=== PATIENT | male | born 1985 | race Two or more races ===

== ENCOUNTER 2016-08-29 23:35 | Emergency (ER) | payer OTHER ==
[~2016-08-29] VITALS: Ht 170.2 cm; Wt 95.3 kg
[~2016-08-29 23:35] MED LIST: IBUPROFEN600 MG ORAL; TRAMADOL HCL50 MG ORAL; XYLOCAINE35.44 GM EXT
[2016-08-30] MEDS ORDERED: LORazepam 1mg tab ORAL ONE (00:15)
[2016-08-30] MEDS ORDERED: KLONOPIN0.5 MG ORAL (01:14)
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
[2016-08-30 01:23] VITALS: BP 123/86
== END 2016-08-30 01:27 | disposition home or self-care (01) ==
LOC: EMR 23:59
DX: F14.10 Cocaine abuse, uncomplicated (principal); F41.9 Anxiety disorder, unspecified; M25.561 Pain in right knee; G89.29 Other chronic pain
CPT/HCPCS: 80300; 99283

== ENCOUNTER 2016-11-27 23:28 | Emergency (ER) | payer MEDICAID, OTHER ==
[~2016-11-27] VITALS: Ht 172.7 cm; Wt 95.3 kg
[~2016-11-27 23:28] MED LIST changes: +KLONOPIN0.5 MG ORAL
[2016-11-27] MEDS ORDERED: NKM (23:36)
[2016-11-28 00:10] LABS: BASOPHILS % (AUTO) 0.7 % (0.0-2.0); EOSINOPHILS % (AUTO) 0.5 % (0.0-3.0); LYMPHOCYTES % (AUTO) 18.3 % (20.0-45.0); MEAN CORPUSCULAR HEMOGLOBIN 27.1 PG (27.0-31.0); MEAN CORPUSCULAR HGB CONC 32.8 G/DL (32.0-36.0); MEAN CORPUSCULAR VOLUME 83 FL (80-99); MEAN PLATELET VOLUME 7.6 FL (6.5-10.1); MONOCYTES % (AUTO) 7.1 % (1.0-10.0); NEUTROPHILS % (AUTO) 73.4 % (45.0-75.0); PLATELET COUNT 282 K/UL (150-450); RED BLOOD COUNT 5.23 M/UL (4.70-6.10); RED CELL DISTRIBUTION WIDTH 15.4 % (11.6-14.8); WHITE BLOOD COUNT 9.3 K/UL (4.8-10.8)
[2016-11-28 00:21] LABS: ACETAMINOPHEN < 10 ug/mL (10-30); ALANINE AMINOTRANSFERASE 29 U/L (3-41); ALBUMIN/GLOBULIN RATIO 0.9 (1.0-2.7); ALCOHOL < 10 mg/dL; ANION GAP 15 (5-15); ASPARTATE AMINO TRANSFERASE 25 U/L (5-40); CALCIUM 9.3 mg/dL (8.6-10.2); CARBON DIOXIDE 27 mEQ/L (20-30); CHLORIDE 100 mEQ/L (98-107); CREATININE 2.3 mg/dL (0.7-1.2); GLOMERULAR FILTRATION RATE 33.8 mL/min (>60); HEMOLYSIS 3; POTASSIUM 4.2 mEQ/L (3.4-4.9); SODIUM 142 mEQ/L (135-145); TOTAL PROTEIN 8.3 g/dL (6.6-8.7)
[2016-11-28 02:26] VITALS: BP 92/48
[2016-11-28 02:27] VITALS: BP 98/66
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
== END 2016-11-28 02:28 | disposition home or self-care (01) ==
LOC: EDBD 23:28 → EMR 23:50
DX: E86.0 Dehydration (principal); F19.10 Other psychoactive substance abuse, uncomplicated
CPT/HCPCS: 36415; 80053; 80329; 85025; 96360

== ENCOUNTER 2017-08-13 18:37 | Emergency (ER) | payer MEDICAID ==
[~2017-08-13] VITALS: Ht 172.7 cm; Wt 83.0 kg
[~2017-08-13 18:37] MED LIST changes: +NKM
[2017-08-13 19:05] VITALS: BP 114/45
--- NOTE | 2017-08-13 19:13 | Emergency Room Report ---
History of Present Illness General Chief Complaint: Animal Bite Source: Patient (Ilya Helms) Present Illness HPI 32-year-old male patient presents to ER complaining of animal bite. patient reports that he was bit by a dog about one hour ago. Patient reports that he does not know the pharmacist in charge owner of the dog. Patient reports pain at site of bite on forearm. Patient reports bleeding from site of bite. Patient denies loss of range of motion or loss of sensation. Patient denies fever, chest pain, shortness of breath. Patient reports he is up-to-date on tetanus vaccinations, last tetanus vaccination 2 years ago. patient does not have any information about the dog pharmacist in charge owner, does not have the owners name and contact information. (Ilya Helms) Allergies: Coded Allergies: No Known Allergies (Unverified , 11/27/16) Patient History Past Medical History: see triage record Immunizations: UTD Reviewed Nursing Documentation: PMH: Agreed; PSxH: Agreed (Ilya Helms) Nursing Documentation-PMH Past Medical History: No Stated History (Ilya Helms) Review of Systems All Other Systems: negative except mentioned in HPI (Ilya Helms) Physical Exam Vital Signs Date Time Temp Pulse Resp B/P (MAP) Pulse Ox O2 Delivery O2 Flow Rate FiO2 08/13/17 18:58 98.4 84 20 114/45 94 Room Air 98.4 Sp02 EP Interpretation: reviewed, normal General Appearance: well appearing, no apparent distress, alert, GCS 15, non- toxic Head: normocephalic, atraumatic Respiratory: lungs clear, normal breath sounds, no rhonchi, no respiratory distress, no accessory muscle use, no wheezing, speaking full sentences Cardiovascular #1: regular rate, rhythm, no edema Cardiovascular #2: 2+ radial (R), 2+ radial (L) Musculoskeletal: back normal, digits/nails normal, gait/station normal, normal range of motion, non-tender Psychiatric: mood/affect normal Skin: other - right forearm, ulnar side: circular bite tammie, blood present, no active bleeding, two deep puncture wounds distally within bite [place], ecchymosis (Ilya Helms) Medical Decision Making PA Attestation Dr. Javier is my supervising Physician whom patient management has been discussed with. (Ilya Helms) Diagnostic Impression: Primary Impression: Bite by animal ER Course Pt presents to ED c/o dog bite. DDX considered but are not limited to animal bite, abrasion, cellulitis, contusion, fracture, retained FB. VITALS Patient is afebrile ordered x-ray and pain medication. Will order x-ray to rule out retained foreign body such as tooth. ED COURSE: x-ray right forearm negative for acute disease, retained foreign body per the preliminary reading. Superficial wounds on right forearm, no active bleeding or draining. Wound does not require suturing. Wound clean and placed in sterile dressing. Does not require Tdap at this time, patient is up to date. Patient instructed to follow up with PCP for wound check in 2-3 days and complete full course of antibiotics. Completed [employer] organization animal bite reporting form with available information. Patient reports pain symptoms have improved. DISCHARGE: Rx provided for Augmentin. At this time pt is stable for d/c to home. she resting comfortably in no acute distress, nontoxic-appearing, able to answer questions without difficulty. Will provide with patient care instructions and any necessary prescriptions. Patient to take medication as instructed. Care plan and follow-up instructions provided. Patient questions asked and answered. Patient reports understanding and agreement to treatment plan. ER precautions given. Patient instructed to return to ER immediately for any new or worsening of symptoms. - Please note that this Emergency Department Report was dictated using [employer] technology software, occasionally this can lead to erroneous entry secondary to interpretation by the dictation equipment. (Ilya Helms) Other X-Ray Diagnostic Results Other X-Ray Diagnostic Results : X-Ray ordered: right forearm # of Views/Limited Vs Complete: 2 View Indication: Pain EP Interpretation: Yes PA Xray: Interpretation reviewed, by supervising MD, and agrees with findings. Interpretation: no dislocation, no soft tissue swelling, no fractures, other - no FB Impression: No acute disease PA Scribe Text Devin Helms PA-C (Ilya Helms.Pameal) Other X-Ray Diagnostic Results : Electronically Signed by: Scribe documentation reviewed by and is accurate, Leopoldo Javier MD. (Leopoldo Jvaier M.D.) Last Vital Signs Date Time Temp Pulse Resp B/P (MAP) Pulse Ox O2 Delivery O2 Flow Rate FiO2 08/13/17 18:58 98.4 84 20 114/45 94 Room Air 98.4 (Ilya Helms) Disposition: HOME, SELF-CARE Condition: Stable Scripts Amoxicillin/Potassium Clav 875-125* (AUGMENTIN 875-125 TABLET*) 1 Each Tablet 1 TAB ORAL TWICE A DAY for 7 Days, #14 TAB Prov: Ilya Helms 08/13/17 Patient Instructions: Animal Bite Additional Instructions: Followup with primary care provider in 3 -5 days for wound check. Return to ER if unable to get appointment or new or worsening of symptoms. Keep wound clean and dry. Take medications as directed. Patient questions asked and answered. ER precautions given, patient instructed to return to ER immediately for any new or worsening of symptoms. Ilya Helms Aug 13, 2017 19:13 Leopoldo Javier M.D. August 15, 2017 16:43
[2017-08-13] MEDS ORDERED: Ketorolac 30mg Inj IM ONE (19:15)
[2017-08-13] MEDS ORDERED: Norco 5mg/325mg tab ORAL ONE (19:15)
[2017-08-13] MEDS ORDERED: Bacitracin Oint UD TOPIC ONE (20:00)
[2017-08-13] MEDS ORDERED: AUGMENTIN 875-1 EAC1 ORAL (20:07)
[2017-08-13 20:41] VITALS: BP 90/57
[2017-08-13 20:47] VITALS: BP 90/57
--- NOTE | 2017-08-14 10:25 | Diagnostic Imaging Report ---
Indication: Pain Forearm pain Findings: 2 views of the left forearm were obtained. There is soft tissue air along the ulnar aspect of the wrist and forearm. This is presumably due to laceration or injury. There is no radiopaque foreign body. No malalignment or acute fracture identified. IMPRESSION: Soft tissue air presumably due to injury. Correlate clinically
== END 2017-08-13 20:47 | disposition home or self-care (01) ==
LOC: EMR 19:41
DX: S51.831A Puncture wound without foreign body of right forearm, initial encounter (principal); W54.0XXA Bitten by dog, initial encounter; Y92.9 Unspecified place or not applicable
CPT/HCPCS: 73090; 96372; 99283; J1885

== ENCOUNTER 2018-04-29 07:57 | Emergency (ER) | payer MEDICAID ==
[~2018-04-29] VITALS: Ht 172.7 cm; Wt 79.4 kg
[~2018-04-29 07:57] MED LIST changes: +AUGMENTIN 875-1 EAC1 ORAL
[2018-04-29 08:08] VITALS: BP 127/84
[2018-04-29] MEDS ORDERED: IBUPROFEN600 MG ORAL (08:33)
[2018-04-29 08:39] VITALS: BP 115/78
--- NOTE | 2018-04-29 09:07 | Emergency Room Report ---
History of Present Illness General Chief Complaint: Chest Pain Source: Patient Present Illness HPI 32-year-old male presents ED for evaluation. Patient complaining of cough and chest wall pain 3 days. Started after he smoked marijuana. Noticed intense bout of coughing which resolved with chest pain that developed shortly after. States he still had the pain. Right-sided, dull, 6 out of 10, nonradiating. Worse with coughing. Coughing is dry. Denies fevers or chills. Denies shortness of breath. Denies any other drug use. No other aggravating relieving factors. Denies any other associated symptoms Allergies: Coded Allergies: No Known Allergies (Unverified , 04/29/18) Patient History Past Medical History: none Past Surgical History: none Pertinent Family History: none Social History: Denies: smoking, alcohol use, drug use Immunizations: UTD Reviewed Nursing Documentation: PMH: Agreed; PSxH: Agreed Nursing Documentation-PMH Past Medical History: No History, Except For Review of Systems All Other Systems: negative except mentioned in HPI Physical Exam Vital Signs Date Time Temp Pulse Resp B/P (MAP) Pulse Ox O2 Delivery O2 Flow Rate FiO2 04/29/18 08:00 98.2 78 16 125/78 97 Room Air 04/29/18 08:08 98 Sp02 EP Interpretation: reviewed, normal General Appearance: no apparent distress, alert, GCS 15, non-toxic Head: normocephalic, atraumatic Eyes: bilateral eye normal inspection, bilateral eye PERRL ENT: hearing grossly normal, normal pharynx, no angioedema, normal voice Neck: full range of motion, supple/symm/no masses Respiratory: lungs clear, normal breath sounds, speaking full sentences, other - reproducibel R sided chest wall pain Cardiovascular #1: regular rate, rhythm, no edema Cardiovascular #2: 2+ carotid (R), 2+ carotid (L), 2+ radial (R), 2+ radial (L) , 2+ dorsalis pedis (R), 2+ dorsalis pedis (L) Gastrointestinal: normal bowel sounds, non tender, soft, non-distended, no guarding, no rebound Rectal: deferred Genitourinary: normal inspection, no CVA tenderness Musculoskeletal: back normal, gait/station normal, normal range of motion, non- tender Neurologic: alert, oriented x3, responsive, motor strength/tone normal, sensory intact, speech normal Psychiatric: judgement/insight normal, memory normal, mood/affect normal, no suicidal/homicidal ideation Reflexes: 3+ bicep (R), 3+ bicep (L), 3+ tricep (R), 3+ tricep (L), 3+ knee (R) , 3+ knee (L) Skin: normal color, no rash, warm/dry, well hydrated Lymphatic: no adenopathy Medical Decision Making Diagnostic Impression: Primary Impression: Chest wall pain Additional Impression: Substance abuse ER Course Hospital Course 32-year-old male presents ED complaining of reproducible chest wall pain after coughing. h/o marijuana use Differential diagnoses include: Rib fracture, TX/unstable angina, contusion, muscle strain Clinical course Patient placed on stretcher. After initial history, physical exam reveals male in no acute distress. There is right-sided reproducible rib pain. Lungs clear. No bruising or crepitus. EKGnormal sinus rhythm no acute ischemic changes interpreted by me Vital stable. No cardiac history. Appears comfortable, not in distress clinical findings consistent with muscle strain/costochondritis. Reassurance given. No additional workup indicated at this time. Cautioned on the use of smoking. We'll provide referrals I. I feel this is a highly complex case requiring extensive working including EKG/Rhythm strip, Xray/CT/US, Blood/urine lab work, repeat exams while in ED, and administration of strong opiates/narcotics for pain control, admission to hospital or close patient follow up. Diagnosis - chest wall pain, substance abuse Stable and discharged to home with prescription for Motrin. avoid smoking. Instructed to followup with PMD. Return to ED if symptoms recur or worsen EKG Diagnostic Results Rate: normal Rhythm: NSR ST Segments: no acute changes ASA given to the pt in ED: No Rhythm Strip Diag. Results EP Interpretation: yes Rhythm: NSR, no PVC's, no ectopy Last Vital Signs Date Time Temp Pulse Resp B/P (MAP) Pulse Ox O2 Delivery O2 Flow Rate FiO2 04/29/18 08:39 98.0 77 16 115/78 100 Room Air 04/29/18 08:08 98 Status: improved Disposition: HOME, SELF-CARE Condition: Stable Scripts Ibuprofen* (MOTRIN*) 600 Mg Tablet 600 MG ORAL Q8H PRN for For Pain, #30 TAB 0 Refills Prov: Ranyd Moore MD 04/29/18 Referrals: NON PHYSICIAN (PCP) [facility] Patient Instructions: Chest Wall Pain, [id number] Randy Moore MD Apr 29, 2018 09:07
--- NOTE | 2018-04-30 17:21 | Cardiology Report ---
APPROVED REPORT EKG Measurement Heart [id number] Normal sinus rhythm Normal ECG
== END 2018-04-29 08:40 | disposition home or self-care (01) ==
LOC: EMR 08:25
DX: R07.89 Other chest pain (principal); F12.10 Cannabis abuse, uncomplicated
CPT/HCPCS: 93005; 99283

== ENCOUNTER 2018-05-25 13:50 | Emergency (ER) | payer MEDICAID ==
[~2018-05-25] VITALS: Ht 170.2 cm; Wt 83.9 kg
[2018-05-25] MEDS ORDERED: NKM (13:56)
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
[2018-05-25] MEDS ORDERED: Norco 5mg/325mg tab ORAL ONE (14:15)
[2018-05-25 14:20] VITALS: BP 104/81
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
[2018-05-25] MEDS ORDERED: IBUPROFEN600 MG ORAL (15:18)
[2018-05-25 15:29] VITALS: BP 104/81
--- NOTE | 2018-05-25 15:30 | NUR ---
ED Nurse Note: Pt cleared DC by KY Tam. Pt is A/Ox4, VSS, DC instruction and prescriptions given, pt verbalized understanding. ID wristband removed. All belongings given to pt. Pt ambulated out of ER with steady gait.
== END 2018-05-25 15:30 | disposition home or self-care (01) ==
LOC: EMR 14:21
DX: S80.01XA Contusion of right knee, initial encounter (principal); V09.9XXA Pedestrian injured in unspecified transport accident, initial encounter; Y92.410 Unspecified street and highway as the place of occurrence of the external cause
CPT/HCPCS: 99283

== ENCOUNTER 2019-09-19 05:49 | Day surgery (SDC) | payer OTHER ==
[~2019-09-19] VITALS: Ht 175.3 cm; Wt 79.4 kg
[2019-09-19] VITALS (12 sets, daily range): BP systolic 105–124; BP diastolic 58–81
[~2019-09-19 05:49] MED LIST changes: +ALA-CORT28.4 GM TP; +ALDARA0.25 GM TOPIC
[2019-09-19] MEDS ORDERED: oxyCONTIN 20mg tab ORAL ONE (06:00)
[2019-09-19] MEDS ORDERED: celeBREX 200mg Cap **SURGERY PATIENTS ONLY ORAL ONE (06:00)
[2019-09-19] MEDS ORDERED: ceFAZolin 1gm IVPB IVPB ONE ×2 (06:00)
[2019-09-19] MEDS ORDERED: Midazolam 2mg/2ml Inj ONE (07:11)
[2019-09-19] MEDS ORDERED: fentaNYL 100 mcg/2 mL IV ONE (07:11)
[2019-09-19] MEDS ORDERED: Kenalog-40 1ml Vial ONE (07:14)
[2019-09-19] MEDS ORDERED: Duramorph PF 5mg/10ml amp ONE (07:14)
[2019-09-19] MEDS ORDERED: Ketorolac 30mg Inj ONE (07:14)
[2019-09-19] MEDS ORDERED: Lidocaine 1% 10mg/ml/Epi 0.005mg/ml 30ml vial INJ ONE (07:15)
[2019-09-19] MEDS ORDERED: Bupivacaine 0.25% Inj 30ml INJ ONE (07:15)
[2019-09-19] MEDS ORDERED: LR 1000ml ONE (07:30)
--- NOTE | 2019-09-19 07:44 | Anethesia Preoperative Eval ---
Anesthesia Pre-op PMH/ROS General Date of Evaluation: Sep 19, 2019 Time of Evaluation: 07:43 Anesthesiologist: mark ASA Score: ASA 2 Mallampati Score Class I : Soft palate, uvula, fauces, pillars visible Class II: Soft palate, uvula, fauces visible Class III: Soft palate, base of uvula visible Class IV: Only hard plate visible Mallampati Classification: Class II Surgeon: malena Diagnosis: right knee pain Surgical Procedure: right knee scope Anesthesia History: none Social History: smoking, current smoker Family History: no anesthesia problems Allergies: Coded Allergies: No Known Allergies (Unverified , 04/29/18) Medications: see eMAR Patient NPO?: Yes NPO Date: Sep 19, 2019 NPO Time: 00:01 Past Medical History Cardiovascular: Denies: HTN, CAD, MS, valve dz, arrhythmia, other Pulmonary: Denies: asthma, COPD, ERNESTO, other Gastrointestinal/Genitourinary: Denies: GERD, CRI, ESRD, other Neurologic/Psychiatric: Reports: other - hx brain aneurysm and syncope; Denies: dementia, CVA, depression/anxiety, TIA Endocrine: Denies: DM, hypothyroidism, steroids, other HEENT: Denies: cataract (L), cataract (R), glaucoma, TUOLUMNE (L), TUOLUMNE (R), other Hematology/Immune: Denies: anemia, DVT, bleeding disorder, other Musculoskeletal/Integumentary: Denies: OA, RA, DJD, DDD, edema, other PSxH Narrative: knee surgery Anesthesia Pre-op Phys. Exam Physician Exam Last Vital Signs Date Time Temp Pulse Resp B/P (MAP) Pulse Ox O2 Delivery O2 Flow Rate FiO2 09/19/19 06:24 Room Air 09/19/19 06:21 98.5 72 18 114/68 99 Constitutional: NAD Neurologic: CN 2-12 intact Cardiovascular: RRR Respiratory: CTA Airway Exam Mallampati Classification 2 Mallampati Score: Class II MO: full ROM: full Teeth: broken Dentures: no upper, no lower Anesthesia Pre-op A/P Studies Pre-op Studies: EKG - sr Risk Assessment & Plan Plan: general Status Change Before Surgery: No Pre-Antibiotics Drug: ancef Given Within 1 Hr of Incision: Yes Time Given: 07:45 Lizy Mendosa CRNA Sep 19, 2019 07:44
[2019-09-19] MEDS ORDERED: fentaNYL 100 mcg/2 mL IV PRN (07:45)
--- NOTE | 2019-09-19 07:56 | Pre-Procedure Note/Attestation ---
Pre-Procedure Note/Attestation Complete Prior to Procedure Planned Procedure: right Procedure Narrative: knee diagnostic arthroscopy, possible synovectomy, chondroplasty Indications for Procedure Pre-Operative Diagnosis: right knee internal derangmeent Attestation I attest that I discussed the nature of the procedure; its benefits; risks and complications; and alternatives (and the risks and benefits of such alternatives ), prior to the procedure, with the patient (or the patient's legal labor relations representative). I attest that, if there was a reasonable possibility of needing a blood transfusion, the patient (or the patient's legal labor relations representative) was given the [facility] standardized written summary, pursuant to the Khalif Rimma Blood Safety Act ([place] Health and Safety Code # 1645, as amended). I attest that I re-evaluated the patient just prior to the surgery and that there has been no change in the patient's H&P, except as documented below: Stewart Richards MD Sep 19, 2019 07:56
--- NOTE | 2019-09-19 07:56 | Operative Note - PDOC ---
Operative Note Operative Note Pre-op Diagnosis: right knee internal derangmeent Procedure: see op report Post-op Diagnosis: same as pre-op plus Operative Findings: consistent w/pre-op dx studies Anesthesia: MAC Specimen: none Complications: none Condition: stable Estimated Blood Loss: none Implant(s) used?: No Stewart Richards MD Sep 19, 2019 07:56
[2019-09-19] MEDS ORDERED: HYDROmorphone 1mg/ml Carpuject SUBQ PRN (08:00)
[2019-09-19] MEDS ORDERED: HYDROcodone/Acetamin 5/325 tab ORAL PRN (08:00)
[2019-09-19] MEDS ORDERED: Tylenol #3 tab (300mg/30mg) ORAL PRN (08:00)
[2019-09-19] MEDS ORDERED: D5 1/2NS 1,000 ML IV SCH (08:00)
[2019-09-19] MEDS ORDERED: NS Irrig 2000ml IRRIG ONE (08:15)
[2019-09-19] MEDS ORDERED: Lidocaine 1% MPF 10mg/ml 5ml ONE (08:28)
--- NOTE | 2019-09-19 08:46 | Immediate Post-Op Evaluation ---
Immediate Post-Op Evalulation Immediate Post-Op Evalulation Procedure: right knee scope Date of Evaluation: Sep 19, 2019 Time of Evaluation: 08:46 IV Fluids: 500 Blood Pressure Systolic: 117 Blood Pressure Diastolic: 68 Pulse Rate: 70 Respiratory Rate: 14 O2 Sat by Pulse Oximetry: 99 Temperature (Fahrenheit): 97.5 Nausea: No Vomiting: No Complications none Patient Status: awake, reacts, patent Hydration Status: adequate Drug: ancef Given Within 1 Hr of Incision: Yes Time Given: 07:45 Lizy Mendosa CRNA Sep 19, 2019 08:46
--- NOTE | 2019-09-19 13:00 | Operative Note - Dictated ---
DATE OF OPERATION: 09/19/2019 PREOPERATIVE DIAGNOSES: 1. Right knee internal derangement. 2. Possible chondral and meniscal pathology. POSTOPERATIVE DIAGNOSES: 1. Grade 3, grade 4 chondral damage in the patellofemoral compartment. 2. Hypertrophic synovial tissue in the medial, lateral, and patellofemoral compartment. 3. Right knee medial meniscus tear. PROCEDURES: 1. Right knee diagnostic arthroscopy and partial medial meniscectomy. 2. Synovectomy, medial, lateral, and patellofemoral compartment. 3. Chondroplasty, patellofemoral compartment. SURGEON: Stewart Richards MD. ANESTHESIA: MAC with local. INDICATION FOR PROCEDURE: The patient is a pleasant gentleman, who has had progressive right knee pain. Failed conservative treatment, elected to undergo right knee diagnostic arthroscopy with possible meniscectomy, synovectomy, and chondroplasty. Risks, limitations, expectations, and complications of the procedure were discussed in detail. All questions addressed. DESCRIPTION OF PROCEDURE: After informed consent was obtained, the patient was brought to the operating room. The patient was placed under general anesthesia. Right leg was prepped and draped in sterile manner. Time-out was performed. Inferolateral stab incision was then made. Trocar introduced into the knee joint. There was hypertrophic synovial tissue and chondral damage making visualization somewhat difficult. Medial compartment was entered. There was some fraying of the posterior horn of the medial meniscus. Medial working portal was established. Synovectomy of the anterior portion of the medial compartment was performed extending to intercondylar notch and lateral compartment. Partial meniscectomy using a shaver was performed. There was no chondral damage in the medial compartment. The ACL was intact. Lateral compartment was free of meniscal and chondral damage. Camera was then placed in the patellofemoral compartment. Gentle chondroplasty was performed. Instruments removed. The skin was closed with 4-0 Monocryl sutures. Compression dressing was applied. The patient was awoken and taken to recovery room with stable vital signs. ESTIMATED BLOOD LOSS: None. COMPLICATIONS: None. SPECIMENS: None. IMPLANTS: None. Stewart Richards M.D. DR: ERICA JOB#: [id number] CC:
== END 2019-09-19 10:25 | disposition home or self-care (01) ==
LOC: SUR 05:49
DX: M67.261 Synovial hypertrophy, not elsewhere classified, right lower leg (principal); S83.241A Other tear of medial meniscus, current injury, right knee, initial encounter; X58.XXXA Exposure to other specified factors, initial encounter; Y92.9 Unspecified place or not applicable; F17.200 Nicotine dependence, unspecified, uncomplicated
CPT/HCPCS: 29876; 29881; 94003; J0690; J1885; J2250; J2405; J2704; J3010; J3301; J3490; J7120; 94150